=== PATIENT | male | born 1960 | race Caucasian/White ===

== ENCOUNTER 2023-10-17 03:32 | Emergency (ER) | payer MEDICARE, MEDICAID ==
[~2023-10-17] VITALS: Ht 177.8 cm; Wt 80.0 kg
[2023-10-17 03:34] VITALS: O2SAT 100
[2023-10-17 06:10] LABS: HEMATOCRIT. 41.3 % (42.0-52.0); HEMOGLOBIN. 14.4 g/dL (14.0-18.0); MEAN CORPUSCULAR VOLUME 85.7 fL (80.0-94.0); MEAN PLATELET VOLUME 7.2 fl (7.4-10.4); PLATELET 164 x1000/uL (130-400); RED BLOOD CELL COUNT 4.81 mill/uL (4.7-6.1); RED CELL DISTRIBUTION WIDTH 13.7 % (11.6-14.6); WHITE BLOOD COUNT 8.4 x1000/uL (4.5-11.0)
[2023-10-17 06:16] LABS: INR 1.1; PROTHROMBIN TIME 11.4 sec (9.6-11.0)
[2023-10-17 06:20] LABS: DIFFERENTIAL COMMENT 1
[2023-10-17 06:21] LABS: ALANINE AMINOTRANSFERASE 70 IU/L (10-49); ALBUMIN 4.3 g/dL (3.2-4.8); ASPARTATE AMINOTRANSFERASE 61 IU/L (<34); BILIRUBIN TOTAL 1.2 mg/dL (0.1-1.0); CALCIUM 8.8 mg/dL (8.7-10.4); CARBON DIOXIDE 25 mEq/L (21-32); CHLORIDE 102 mEq/L (98-107); GLUCOSE 145 mg/dL (70-105); POTASSIUM 3.1 mEq/L (3.5-5.1); PROTEIN TOTAL 6.8 g/dL (6.0-8.3); SODIUM 135 mEq/L (136-145); UREA NITROGEN BLOOD 28 mg/dL (9-23)
[2023-10-17] MEDS: FAMOTIDINE 20MG/2ML VIAL IV STA (06:28)
[2023-10-17] MEDS: KETOROLAC 30MG/ML VIAL IV STA (06:28)
[2023-10-17] MEDS: IBUPROFEN 400MG TABLET PO ONE (06:29)
[2023-10-17] MEDS: ONDANSETRON HCL 4MG/2ML INJ IV STA (06:29)
[2023-10-17] MEDS: MAGNESIUM/ALUMINUM HYDROXIDE/SIMETHICONE 30ML UDC PO STA (06:29)
[2023-10-17] MEDS: SODIUM CHLORIDE 0.9% 1,000 ML IV ONE (06:29)
[2023-10-17] MEDS ORDERED: TOPUD PO (08:00)
[2023-10-17] MEDS ORDERED: ONDA4TAB50 PO (08:00)
[2023-10-17 09:40] VITALS: BP 109/62; PULSE 84; RESP 18; TEMP 98.2
[2023-10-17 10:46] LABS: PLATELET ESTIMATE NORMAL
== END 2023-10-17 09:44 | disposition home or self-care (01) ==
LOC: ER 03:32
DX: R19.7 Diarrhea, unspecified (principal)
CPT/HCPCS: 99284; 96374; 96375; 96361; 80053; 83690; 85025; 85610; 36415; J3490; J1885; J2405; J7030